=== PATIENT | male | born 1940 | race Caucasian/White ===

== ENCOUNTER 2017-01-30 19:34 | Emergency (ER) | payer BC, MEDICARE ==
[~2017-01-30] VITALS: Ht 185.4 cm; Wt 104.3 kg
[~2017-01-30 19:34] MED LIST: AEROCHAMBER; ALBUTEROL SULFA INH; ALBUTEROL0.09 MG/A2 IH; AUGMENTIN 875875 MG PO; BIAXIN500 MG PO; CEFDINIR300 MG PO; ELIQUIS5 M1 PO; LEVOTHROID0.025 MG; LORATADINE; PRADAXA150 MG PO; PROVENTIL0.09 MG/AC IH; ROBITUSSIN AC 110 ML PO; VICODIN 5/500 505 MG PO; ZITHROMAX Z PA250 MG PO; ZITHROMAX250 MG PO; ZITHROMAX500 MG PO; [UNRECOGNIZED DRUG - OTHER]
== END 2017-01-30 21:02 | disposition home or self-care (01) ==
LOC: ED 19:34
DX: S46.911A Strain of unspecified muscle, fascia and tendon at shoulder and upper arm level, right arm, initial encounter (principal); S50.01XA Contusion of right elbow, initial encounter; F17.200 Nicotine dependence, unspecified, uncomplicated; Z79.899 Other long term (current) drug therapy; W01.0XXA Fall on same level from slipping, tripping and stumbling without subsequent striking against object, initial encounter; Y93.89 Activity, other specified; Y92.89 Other specified places as the place of occurrence of the external cause; Y99.8 Other external cause status

== ENCOUNTER 2017-02-10 10:06 | Emergency (ER) | payer BC, MEDICARE ==
[~2017-02-10] VITALS: Wt 102.1 kg
[2017-02-10] MEDS ORDERED: 'PARAFON FORTE500 M1 PO (10:30)
[2017-02-10] MEDS ORDERED: NAPROSYN500 MG PO (10:30)
== END 2017-02-10 12:13 | disposition home or self-care (01) ==
LOC: ED 10:06
DX: S22.080A Wedge compression fracture of T11-T12 vertebra, initial encounter for closed fracture (principal); R03.0 Elevated blood-pressure reading, without diagnosis of hypertension; Z79.899 Other long term (current) drug therapy; W19.XXXA Unspecified fall, initial encounter; Y93.9 Activity, unspecified; Y92.9 Unspecified place or not applicable; Y99.9 Unspecified external cause status

== ENCOUNTER 2017-06-09 14:26 | Emergency (ER) | payer OTHER, BC, MEDICARE ==
[~2017-06-09] VITALS: Wt 102.1 kg
[~2017-06-09 14:26] MED LIST changes: +'PARAFON FORTE500 M1 PO; +NAPROSYN500 MG PO
[2017-06-09 15:11] LABS: EOS # 0.3 10*3/uL (0.0-0.4); EOS % 5.8 % (1.0-4.0); HEMATOCRIT 38.6 % (42.0-52.0); HEMOGLOBIN 12.9 g/dl (14.0-18.0); LYMPH # 1.2 10*3/uL (1.3-4.4); LYMPH % 25.7 % (27.0-41.0); MEAN CELL VOLUME 97.7 fl (80.0-94.0); MEAN CORPUSCULAR HGB 32.7 pg (27.0-31.0); MEAN CORPUSCULAR HGB CONC 33.4 g/dl (33.0-37.0); MEAN PLATELET VOLUME 9.1 fl (9.6-12.3); MONO # 0.4 10*3/uL (0.1-1.0); MONO % 9.8 % (3.0-9.0); NEUT # 2.6 10*3/uL (2.3-7.9); PLATELET COUNT AUTOMATED 162 10*3/uL (130-400); RED BLOOD COUNT 3.95 10*6/uL (4.50-5.90); RED CELL DISTRI WIDTH 14.6 % (0-14.5); WHITE BLOOD COUNT 4.5 10*3/uL (4.8-10.8)
[2017-06-09 15:27] LABS: ALBUMIN 3.4 gm/dl (3.1-4.5); ALKALINE PHOSPHATASE 126 U/L (45-117); BILIRUBIN, TOTAL 0.2 mg/dl (0.2-1.0); BUN 15 mg/dl (7-24); CARBON DIOXIDE 24 mmol/L (21-32); CHLORIDE 109 mmol/L (98-107); EST GLOM FILT AFRICAN AMERICAN > 60 ml/min; GLUCOSE 118 mg/dL (65-99); POTASSIUM 4.1 mmol/L (3.5-5.1); SGOT/AST 26 IU/L (3-35); SGPT/ALT 32 U/L (12-78); SODIUM 141 mmol/L (136-145); TOTAL PROTEIN 6.7 gm/dL (6.4-8.2)
[2017-06-09 15:33] LABS: TROPONIN I < 0.015 ng/ml (<0.045)
[2017-06-09 15:38] LABS: BILIRUBIN NEGATIVE (NEGATIVE); BLOOD NEGATIVE (NEGATIVE); CLARITY CLEAR (CLEAR); COLOR YELLOW (YELLOW); GLUCOSE NEGATIVE (NEGATIVE); KETONE NEGATIVE (NEGATIVE); LEUKO ESTERASE NEGATIVE (NEGATIVE); NITRITE NEGATIVE (NEGATIVE); PH 5.5 (5.0-9.0); PROTEIN NEGATIVE (NEGATIVE); SPECIFIC GRAVITY 1.015 (1.005-1.030); UROBILINOGEN 0.2 E.U./dl (0.2-1.0)
[2017-06-09 15:48] LABS: EPITHELIAL CELLS 0-2; URINE REFLEX COMMENT YES (NO)
== END 2017-06-09 16:19 | disposition home or self-care (01) ==
LOC: ED 14:26
PROVIDERS: Nurse Practitioner Family
DX: R31.9 Hematuria, unspecified (principal); R42 Dizziness and giddiness; R03.0 Elevated blood-pressure reading, without diagnosis of hypertension; Z79.899 Other long term (current) drug therapy

== ENCOUNTER 2017-09-13 19:06 | Emergency (ER) | payer BC, MEDICARE ==
[~2017-09-13] VITALS: Ht 185.4 cm; Wt 97.5 kg
[2017-09-13 19:54] LABS: EOS # 0.1 10*3/uL (0.0-0.4); EOS % 0.9 % (1.0-4.0); HEMATOCRIT 38.4 % (42.0-52.0); HEMOGLOBIN 13.3 g/dl (14.0-18.0); LYMPH # 0.9 10*3/uL (1.3-4.4); LYMPH % 16.2 % (27.0-41.0); MEAN CELL VOLUME 98.2 fl (80.0-94.0); MEAN CORPUSCULAR HGB CONC 34.6 g/dl (33.0-37.0); MEAN PLATELET VOLUME 8.6 fl (9.6-12.3); MONO # 0.7 10*3/uL (0.1-1.0); MONO % 12.5 % (3.0-9.0); NEUT # 3.8 10*3/uL (2.3-7.9); PLATELET COUNT AUTOMATED 160 10*3/uL (130-400); RED BLOOD COUNT 3.91 10*6/uL (4.50-5.90); RED CELL DISTRI WIDTH 14.6 % (0-14.5); WHITE BLOOD COUNT 5.4 10*3/uL (4.8-10.8)
[2017-09-13 20:10] LABS: ALBUMIN 3.6 gm/dl (3.1-4.5); ALKALINE PHOSPHATASE 107 U/L (45-117); BUN 15 mg/dl (7-24); CHLORIDE 107 mmol/L (98-107); CREATININE 0.82 mg/dL (0.70-1.30); SGOT/AST 20 IU/L (3-35); SGPT/ALT 32 U/L (12-78); SODIUM 139 mmol/L (136-145); TOTAL PROTEIN 6.9 gm/dL (6.4-8.2)
[2017-09-13] MEDS ORDERED: ZITHROMAX250 MG PO (21:29)
== END 2017-09-13 22:36 | disposition home or self-care (01) ==
LOC: ED 19:06
PROVIDERS: Physician Assistant
DX: J18.9 Pneumonia, unspecified organism (principal); Z79.899 Other long term (current) drug therapy

== ENCOUNTER 2017-11-09 15:56 | Emergency (ER) | payer MEDICARE, BC ==
[~2017-11-09] VITALS: Wt 93.9 kg
[2017-11-09 16:57] LABS: EOS # 0.1 10*3/uL (0.0-0.4); EOS % 1.2 % (1.0-4.0); HEMATOCRIT 40.3 % (42.0-52.0); HEMOGLOBIN 13.6 g/dl (14.0-18.0); LYMPH # 0.8 10*3/uL (1.3-4.4); LYMPH % 14.8 % (27.0-41.0); MEAN CELL VOLUME 97.3 fl (80.0-94.0); MEAN CORPUSCULAR HGB 32.9 pg (27.0-31.0); MEAN CORPUSCULAR HGB CONC 33.7 g/dl (33.0-37.0); MEAN PLATELET VOLUME 9.2 fl (9.6-12.3); MONO # 0.6 10*3/uL (0.1-1.0); MONO % 11.5 % (3.0-9.0); NEUT # 3.7 10*3/uL (2.3-7.9); NEUT % 72.1 % (47.0-73.0); PLATELET COUNT AUTOMATED 159 10*3/uL (130-400); RED BLOOD COUNT 4.14 10*6/uL (4.50-5.90); RED CELL DISTRI WIDTH 14.5 % (0-14.5); WHITE BLOOD COUNT 5.1 10*3/uL (4.8-10.8)
[2017-11-09 17:13] LABS: ALBUMIN 3.6 gm/dl (3.1-4.5); ALKALINE PHOSPHATASE 110 U/L (45-117); BUN 16 mg/dl (7-24); CHLORIDE 103 mmol/L (98-107); CREATININE 0.86 mg/dL (0.70-1.30); SGOT/AST 27 IU/L (3-35); SGPT/ALT 40 U/L (12-78); SODIUM 138 mmol/L (136-145)
[2017-11-09] MEDS ORDERED: ROBITUSSIN DM 105 ML PO (18:37)
[2017-11-09] MEDS ORDERED: PREDNISONE20 M1 PO (18:37)
== END 2017-11-09 19:02 | disposition home or self-care (01) ==
LOC: ED 15:56
PROVIDERS: Nurse Practitioner Family
DX: J09.X2 Influenza due to identified novel influenza A virus with other respiratory manifestations (principal); Z79.899 Other long term (current) drug therapy

== ENCOUNTER 2017-11-14 03:41 | Emergency (ER) | payer MEDICARE, BC ==
[~2017-11-14] VITALS: Ht 185.4 cm; Wt 97.1 kg
[~2017-11-14 03:41] MED LIST changes: +PREDNISONE20 M1 PO; +ROBITUSSIN DM 105 ML PO
[2017-11-14 04:46] LABS: BASO % 0.2 % (0.0-1.0); EOS # 0.1 10*3/uL (0.0-0.4); EOS % 2.7 % (1.0-4.0); HEMOGLOBIN 13.5 g/dl (14.0-18.0); LYMPH # 1.2 10*3/uL (1.3-4.4); LYMPH % 23.5 % (27.0-41.0); MEAN CELL VOLUME 96.3 fl (80.0-94.0); MEAN CORPUSCULAR HGB 33.3 pg (27.0-31.0); MEAN CORPUSCULAR HGB CONC 34.6 g/dl (33.0-37.0); MEAN PLATELET VOLUME 9.5 fl (9.6-12.3); MONO # 0.6 10*3/uL (0.1-1.0); MONO % 12.3 % (3.0-9.0); NEUT # 2.9 10*3/uL (2.3-7.9); NEUT % 59.3 % (47.0-73.0); PLATELET COUNT AUTOMATED 165 10*3/uL (130-400); RED BLOOD COUNT 4.05 10*6/uL (4.50-5.90); RED CELL DISTRI WIDTH 14.6 % (0-14.5); WHITE BLOOD COUNT 4.9 10*3/uL (4.8-10.8)
[2017-11-14 04:57] LABS: ACT PARTIAL THROMBO TIME 26.3 SECONDS (20.8-31.5)
[2017-11-14 05:04] LABS: ALBUMIN 3.3 gm/dl (3.1-4.5); ALKALINE PHOSPHATASE 107 U/L (45-117); BUN 21 mg/dl (7-24); CHLORIDE 108 mmol/L (98-107); CREATININE 0.74 mg/dL (0.70-1.30); POTASSIUM 4.1 mmol/L (3.5-5.1); SGOT/AST 28 IU/L (3-35); SGPT/ALT 39 U/L (12-78); SODIUM 142 mmol/L (136-145); TOTAL PROTEIN 6.3 gm/dL (6.4-8.2); TROPONIN I < 0.015 ng/ml (<0.045)
[2017-11-14] MEDS ORDERED: PREDNISONE20 M1 PO (05:17)
[2017-11-14] MEDS ORDERED: DUONEB 3 MG/3 ML3 M1 INH (05:17)
[2017-11-14] MEDS ORDERED: ZITHROMAX250 MG PO (05:17)
== END 2017-11-14 05:23 | disposition home or self-care (01) ==
LOC: ED 03:41
PROVIDERS: Emergency Medicine Emergency Medical Services
DX: J20.9 Acute bronchitis, unspecified (principal); Z79.899 Other long term (current) drug therapy

== ENCOUNTER 2017-12-03 09:47 | Emergency (ER) | payer MEDICARE, BC ==
[~2017-12-03] VITALS: Ht 185.4 cm; Wt 95.3 kg
[~2017-12-03 09:47] MED LIST changes: +DUONEB 3 MG/3 ML3 M1 INH
[2017-12-03 10:22] LABS: EOS # 0.1 10*3/uL (0.0-0.4); EOS % 1.7 % (1.0-4.0); HEMOGLOBIN 13.1 g/dl (14.0-18.0); LYMPH % 27.6 % (27.0-41.0); MEAN CELL VOLUME 97.7 fl (80.0-94.0); MEAN CORPUSCULAR HGB 32.8 pg (27.0-31.0); MEAN CORPUSCULAR HGB CONC 33.6 g/dl (33.0-37.0); MONO # 0.5 10*3/uL (0.1-1.0); MONO % 14.9 % (3.0-9.0); NEUT % 55.5 % (47.0-73.0); PLATELET COUNT AUTOMATED 179 10*3/uL (130-400); RED BLOOD COUNT 3.99 10*6/uL (4.50-5.90); RED CELL DISTRI WIDTH 14.4 % (0-14.5); WHITE BLOOD COUNT 3.6 10*3/uL (4.8-10.8)
[2017-12-03 10:31] LABS: ACT PARTIAL THROMBO TIME 27.9 SECONDS (20.8-31.5)
[2017-12-03 10:40] LABS: ALBUMIN 3.4 gm/dl (3.1-4.5); ALKALINE PHOSPHATASE 111 U/L (45-117); BUN 14 mg/dl (7-24); CHLORIDE 109 mmol/L (98-107); CREATININE 0.79 mg/dL (0.70-1.30); SGOT/AST 22 IU/L (3-35); SGPT/ALT 37 U/L (12-78); SODIUM 142 mmol/L (136-145); TOTAL PROTEIN 6.7 gm/dL (6.4-8.2)
[2017-12-03 10:46] LABS: TROPONIN I < 0.015 ng/ml (<0.045)
[2017-12-03] MEDS ORDERED: LEVAQUIN750 M1 PO (11:26)
[2017-12-03] MEDS ORDERED: PREDNISONE50 MG PO (11:43)
== END 2017-12-03 11:57 | disposition home or self-care (01) ==
LOC: ED 09:47
PROVIDERS: Student in an Organized Health Care Education/Training Program
DX: J18.9 Pneumonia, unspecified organism (principal); Z79.899 Other long term (current) drug therapy

== ENCOUNTER 2017-12-26 16:05 | Emergency (ER) | payer MEDICARE, BC ==
[~2017-12-26] VITALS: Ht 185.4 cm; Wt 95.3 kg
--- NOTE | ~2017-12-26 | EKG ---
[place], [place] ELECTROCARDIOGRAM REPORT NAME: MICHAELLE PINEDA SR UNIT #: [id number] ROOM: DOCTOR: SIVA JOHNS MD BIRTHDATE: [birth year] DOS: 12/26/2017 TIME: 1717 hours. Normal sinus rhythm at 60 beats per minute. The tracing is within normal limits. No previous tracing is available for comparison. SIVA JOHNS MD CM:EKGRPT:ELECTROCARDIOGRAM REPORT [id number] SIVA JOHNS MD
[~2017-12-26 16:05] MED LIST changes: +LEVAQUIN750 M1 PO; +PREDNISONE50 MG PO
[2017-12-26 17:21] LABS: EOS # 0.1 10*3/uL (0.0-0.4); EOS % 2.9 % (1.0-4.0); HEMATOCRIT 36.4 % (42.0-52.0); HEMOGLOBIN 12.2 g/dl (14.0-18.0); LYMPH # 1.4 10*3/uL (1.3-4.4); LYMPH % 39.8 % (27.0-41.0); MEAN CELL VOLUME 98.4 fl (80.0-94.0); MEAN CORPUSCULAR HGB CONC 33.5 g/dl (33.0-37.0); MEAN PLATELET VOLUME 8.6 fl (9.6-12.3); MONO # 0.5 10*3/uL (0.1-1.0); MONO % 15.3 % (3.0-9.0); NEUT # 1.4 10*3/uL (2.3-7.9); NEUT % 41.4 % (47.0-73.0); PLATELET COUNT AUTOMATED 177 10*3/uL (130-400); RED CELL DISTRI WIDTH 14.9 % (0-14.5); WHITE BLOOD COUNT 3.4 10*3/uL (4.8-10.8)
[2017-12-26 17:41] LABS: ALBUMIN 3.3 gm/dl (3.1-4.5); ALKALINE PHOSPHATASE 91 U/L (45-117); BUN 20 mg/dl (7-24); CHLORIDE 108 mmol/L (98-107); CREATININE 0.78 mg/dL (0.70-1.30); SGOT/AST 21 IU/L (3-35); SGPT/ALT 27 U/L (12-78); SODIUM 141 mmol/L (136-145); TOTAL PROTEIN 6.3 gm/dL (6.4-8.2)
[2017-12-26 17:42] LABS: TROPONIN I < 0.015 ng/ml (<0.045)
[2017-12-26] MEDS ORDERED: DUONEB 3 MG/3 ML3 M1 NEB (18:47)
[2017-12-26] MEDS ORDERED: AVPAK AZITHROM250 M1 PO (18:51)
== END 2017-12-26 18:56 | disposition home or self-care (01) ==
LOC: ED 16:05
PROVIDERS: Family Medicine
DX: J44.1 Chronic obstructive pulmonary disease with (acute) exacerbation (principal); Z79.899 Other long term (current) drug therapy

== ENCOUNTER 2018-05-04 21:04 | Emergency (ER) | payer MEDICARE ==
[~2018-05-04 21:04] MED LIST changes: +AVPAK AZITHROM250 M1 PO; +DUONEB 3 MG/3 ML3 M1 NEB
[2018-05-05] MEDS ORDERED: CEPHALEXIN500 M1 PO (00:29)
== END 2018-05-05 00:30 | disposition home or self-care (01) ==
LOC: ED 21:04
DX: S80.01XA Contusion of right knee, initial encounter (principal); Z79.899 Other long term (current) drug therapy; W01.198A Fall on same level from slipping, tripping and stumbling with subsequent striking against other object, initial encounter; Y93.89 Activity, other specified; Y92.89 Other specified places as the place of occurrence of the external cause; Y99.9 Unspecified external cause status